=== PATIENT | female | born 1965 | race Caucasian/White ===

== ENCOUNTER 2019-06-03 16:00 | Outpatient (RCR) | payer OTHER, SELFPAY | END 2019-06-08 23:59 | LOC: NS 16:00 | PROVIDERS: PCP Internal Medicine; Visit Provider Internal Medicine | DX: Z71.3 Dietary counseling and surveillance (principal); E66.9 Obesity, unspecified; I10 Essential (primary) hypertension; R73.9 Hyperglycemia, unspecified | CPT/HCPCS: 97802; 97803 ==

== ENCOUNTER 2019-06-17 15:06 | Outpatient (RCR) | payer OTHER, SELFPAY | END 2019-07-09 23:59 | LOC: NS 15:06 | PROVIDERS: PCP Internal Medicine; Visit Provider Internal Medicine | DX: Z71.3 Dietary counseling and surveillance (principal); E66.9 Obesity, unspecified; I10 Essential (primary) hypertension; R73.9 Hyperglycemia, unspecified | CPT/HCPCS: 97803 ==

== ENCOUNTER 2019-07-15 14:51 | Outpatient (RCR) | payer OTHER, SELFPAY | END 2019-08-08 23:59 | LOC: NS 14:51 | PROVIDERS: PCP Internal Medicine; Visit Provider Internal Medicine | DX: Z71.3 Dietary counseling and surveillance (principal); E66.9 Obesity, unspecified; I10 Essential (primary) hypertension; R73.9 Hyperglycemia, unspecified | CPT/HCPCS: 97803 ==

== ENCOUNTER 2019-08-27 16:36 | Outpatient (RCR) | payer OTHER, SELFPAY | END 2019-09-08 23:59 | LOC: NS 16:36 | PROVIDERS: PCP Internal Medicine; Visit Provider Internal Medicine | DX: Z71.3 Dietary counseling and surveillance (principal); E66.9 Obesity, unspecified; I10 Essential (primary) hypertension; R73.9 Hyperglycemia, unspecified | CPT/HCPCS: 97803 ==

== ENCOUNTER 2019-09-17 14:25 | Outpatient (RCR) | payer OTHER, SELFPAY | END 2019-09-17 23:59 | disposition home or self-care (01) | LOC: NS 14:25 | PROVIDERS: PCP Internal Medicine; Visit Provider Internal Medicine | DX: Z71.3 Dietary counseling and surveillance (principal); E66.9 Obesity, unspecified; I10 Essential (primary) hypertension; R73.9 Hyperglycemia, unspecified | CPT/HCPCS: 97803 ==

== ENCOUNTER 2022-10-31 17:30 | Outpatient (RCR) | payer SELFPAY | END 2022-11-07 23:59 | LOC: NS 17:30 | PROVIDERS: PCP Internal Medicine | DX: Z71.3 Dietary counseling and surveillance (principal); E11.9 Type 2 diabetes mellitus without complications ==

== ENCOUNTER 2022-12-22 16:00 | Observation (INO) | payer OTHER, SELFPAY ==
[2022-12-22 16:01] VITALS: BP 166/84; PULSE 79; RESP 20; TEMP 36.5; O2SAT 94; BMI 45.8
[2022-12-22] MEDS: Ondansetron 4 MG/2 ML Vial IV ×3 (16:13→23:27)
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
[2022-12-22] MEDS: fentaNYL 100 MCG/2 ML Ampul 50 MCG IV (16:15)
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
[2022-12-22 16:44] LABS: Absolute Lymphocyte Count 2.53 X10^3/uL (0.83-4.51); Absolute Neutrophil Count 6.8 X10^3/uL (2.0-7.7); Basophil# 0.06 X10^3/uL; Basophil% 0.6 % (0-1); Hemoglobin 13.1 g/dL (12.0-15.0); Lymphocyte # 2.53 X10^3/ul (0.83-4.51); Lymphocyte % 24.4 % (19-41); Mean Corp Hgb Conc 31.2 g/dL (32-36); Mean Corpuscular Hgb 27.7 pg (27.0-32.0); Mean Corpuscular Volume 88.8 fL (81-99); Mean Platelet Vol. 10.9 fl (6.2-12.0); Monocyte# 0.76 X10^3/uL; Monocyte% 7.3 % (0-10); NRBC Flagged by Analyzer 0 % (0-5); Neutrophil # 6.83 X10^3/uL (2.7-7.7); Neutrophil % 65.7 % (47-70); Platelet Count 317 K/mm3 (150-450); RBC Distribution Width CV 13.9 % (11.6-14.6); RBC Distribution Width SD 45.1 fl (35.1-43.9); Red Blood Count 4.73 M/mm3 (4.2-5.4); White Blood Count 10.4 K/mm3 (4.4-11.0)
[2022-12-22 16:55] LABS: International Normalized Ratio 2.2; Prothrombin Time (Protime)PT. 24.5 SECONDS (11.7-14.9)
[2022-12-22 17:04] LABS: Anion Gap 6 (5-15); BUN 17 mg/dL (7-18); BUN/Creat Ratio 25.1 RATIO (10-20); Calcium,Total 9.6 mg/dL (8.5-10.1); Chloride 105 mmol/L (98-107); Creatinine, Serum 0.68 mg/dL (0.55-1.02); EST Glomerular Filtration Rate 95 mL/min (>60); Est Glom Filt Rate - Afr Amer 115 mL/min (>60); Estimated Creatinine Clearance 78.82 ml/min; Glucose 115 mg/dL (74-106); Potassium 4.2 mmol/L (3.5-5.1); Sodium Level 137 mmol/L (136-145)
[2022-12-22 18:00] VITALS: BP 162/78; PULSE 90; RESP 26; O2SAT 90
[2022-12-22] MEDS: Morphine 4 MG/ML Syringe IV ×3 (18:05→23:28)
[2022-12-22 20:58] VITALS: BP 174/98; PULSE 104; RESP 28; O2SAT 95
[2022-12-22 21:18] VITALS: BP 114/69; PULSE 104; RESP 29; O2SAT 94
--- NOTE | 2022-12-22 21:18 | ED.RN ---
Pt given morphine 4mg IV, pulse ox resting at 92%. Placed on 2L NC to prevent hypoxia from morphine.
[2022-12-22 21:53] VITALS: BP 140/72; PULSE 105; RESP 28; TEMP 36.8; O2SAT 93
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
--- NOTE | 2022-12-22 22:17 | ED.RN ---
Pt able to slowly stand but unable to ambulate.
[2022-12-22 23:08] VITALS: BMI 42.7
[2022-12-22 23:21] VITALS: BP 167/98; PULSE 88; RESP 18; TEMP 36.6; O2SAT 93
[2022-12-23] VITALS (7 sets, daily range): BP systolic 80–147; BP diastolic 61–92; PULSE 78–100; RESP 15–18; TEMP 36.2–36.9; O2SAT 92–99
[2022-12-23] MEDS: oxyCODONE 5 MG Tablet 10 MG PO ×3 (04:02→21:12)
[2022-12-23] MEDS: Acetaminophen 325 MG Tablet 650 MG PO (04:02)
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
[2022-12-23 07:29] LABS: Absolute Lymphocyte Count 1.95 X10^3/uL (0.83-4.51); Absolute Neutrophil Count 7.1 X10^3/uL (2.0-7.7); Basophil# 0.05 X10^3/uL; Basophil% 0.5 % (0-1); Eosinophil# 0.11 X10^3/uL; Eosinophils% 1.1 % (0-5); Hematocrit 39.8 % (37-47); Hemoglobin 12.2 g/dL (12.0-15.0); Lymphocyte # 1.95 X10^3/ul (0.83-4.51); Lymphocyte % 19.3 % (19-41); Mean Corp Hgb Conc 30.7 g/dL (32-36); Mean Corpuscular Hgb 27.4 pg (27.0-32.0); Mean Corpuscular Volume 89.4 fL (81-99); Mean Platelet Vol. 11.1 fl (6.2-12.0); Monocyte# 0.88 X10^3/uL; Monocyte% 8.7 % (0-10); NRBC Flagged by Analyzer 0 % (0-5); Neutrophil # 7.08 X10^3/uL (2.7-7.7); Neutrophil % 70.1 % (47-70); Platelet Count 304 K/mm3 (150-450); RBC Distribution Width CV 13.9 % (11.6-14.6); RBC Distribution Width SD 45.4 fl (35.1-43.9); Red Blood Count 4.45 M/mm3 (4.2-5.4); White Blood Count 10.1 K/mm3 (4.4-11.0)
[2022-12-23 08:06] LABS: Anion Gap 1 (5-15); BUN 10 mg/dL (7-18); BUN/Creat Ratio 18.3 RATIO (10-20); Chloride 105 mmol/L (98-107); Creatinine, Serum 0.54 mg/dL (0.55-1.02); EST Glomerular Filtration Rate 122 mL/min (>60); Est Glom Filt Rate - Afr Amer 148 mL/min (>60); Estimated Creatinine Clearance 99.26 ml/min; Glucose 110 mg/dL (74-106); Potassium 3.9 mmol/L (3.5-5.1); Sodium Level 136 mmol/L (136-145)
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
[2022-12-23] MEDS: Paroxetine 20 MG Tablet PO (10:45)
[2022-12-23] MEDS: Lisinopril 20 MG Tablet PO (10:45)
[2022-12-23] MEDS: Lidocaine 5% Patch 1 PATCH TOPICAL (10:45)
[2022-12-23] MEDS: Pantoprazole Sodium 40 MG Tablet PO (10:45)
[2022-12-23] MEDS: tiZANidine HCl 2 MG Tablet 4 MG PO ×3 (10:45→21:14)
[2022-12-23] MEDS: Acetaminophen 500 MG Tablet 1000 MG PO ×3 (10:54→21:13)
[2022-12-23] MEDS: Ibuprofen 400 MG Tablet 800 MG PO ×2 (14:07→21:14)
[2022-12-23] MEDS: Ondansetron 4 MG/2 ML Vial IV ×2 (14:12→21:45)
[2022-12-23] MEDS: 0.9% Saline Lock 10 ML Syringe IV ×2 (14:12→21:45)
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
[2022-12-23] MEDS: Senna/Docusate Sodium 1 Tablet 2 TABLET PO (17:31)
[2022-12-23] MEDS: MELATONIN 3 MG TABLET PO (21:12)
[2022-12-24] MEDS: Ibuprofen 400 MG Tablet 800 MG PO (06:59)
[2022-12-24] MEDS: Acetaminophen 500 MG Tablet 1000 MG PO (07:01)
[2022-12-24] MEDS: tiZANidine HCl 2 MG Tablet 4 MG PO (07:04)
[2022-12-24 07:05] LABS: International Normalized Ratio 2.6
[2022-12-24] MEDS: Senna/Docusate Sodium 1 Tablet 2 TABLET PO (07:12)
[2022-12-24 07:16] VITALS: BP 129/46; PULSE 76; RESP 16; TEMP 36.4; O2SAT 99
[2022-12-24 07:23] LABS: Anion Gap 6 (5-15); BUN 21 mg/dL (7-18); BUN/Creat Ratio 16.2 RATIO (10-20); Calcium,Total 8.8 mg/dL (8.5-10.1); Chloride 105 mmol/L (98-107); EST Glomerular Filtration Rate 45 mL/min (>60); Est Glom Filt Rate - Afr Amer 54 mL/min (>60); Estimated Creatinine Clearance 41.23 ml/min; Glucose 98 mg/dL (74-106); Potassium 4.1 mmol/L (3.5-5.1); Sodium Level 137 mmol/L (136-145)
[2022-12-24 09:10] VITALS: BP 89/59; PULSE 77; RESP 16; TEMP 36.1; O2SAT 94
[2022-12-24] MEDS: Lidocaine 5% Patch 1 PATCH TOPICAL (09:14)
[2022-12-24] MEDS: Paroxetine 20 MG Tablet PO (09:15)
[2022-12-24] MEDS: Pantoprazole Sodium 40 MG Tablet PO (09:15)
[2022-12-24] MEDS: 0.9% Normal Saline (500mL Bag) 500 ML 999 ML IV (09:19)
[2022-12-24 10:50] LABS: Anion Gap 5 (5-15); BUN 23 mg/dL (7-18); BUN/Creat Ratio 19.5 RATIO (10-20); Calcium,Total 8.4 mg/dL (8.5-10.1); Chloride 106 mmol/L (98-107); Creatinine, Serum 1.18 mg/dL (0.55-1.02); EST Glomerular Filtration Rate 50 mL/min (>60); Est Glom Filt Rate - Afr Amer 61 mL/min (>60); Estimated Creatinine Clearance 45.42 ml/min; Glucose 114 mg/dL (74-106); Potassium 4.3 mmol/L (3.5-5.1); Sodium Level 135 mmol/L (136-145)
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
[2022-12-24 12:00] VITALS: BP 99/50; PULSE 74
== END 2022-12-24 13:38 | disposition home or self-care (01) ==
LOC: ED 21:51 → MS3 22:12
PROVIDERS: Admitting Provider Hospitalist; Emergency Provider Emergency Medicine; PCP Internal Medicine; Visit Provider Internal Medicine
DX: S32.010A Wedge compression fracture of first lumbar vertebra, initial encounter for closed fracture (principal); Z68.41 Body mass index [BMI] 40.0-44.9, adult; E66.01 Morbid (severe) obesity due to excess calories; D68.59 Other primary thrombophilia; M51.16 Intervertebral disc disorders with radiculopathy, lumbar region; I10 Essential (primary) hypertension; K21.9 Gastro-esophageal reflux disease without esophagitis; Y92.410 Unspecified street and highway as the place of occurrence of the external cause; V89.2XXA Person injured in unspecified motor-vehicle accident, traffic, initial encounter; F32.A Depression, unspecified; M25.552 Pain in left hip; R26.2 Difficulty in walking, not elsewhere classified; M25.551 Pain in right hip; Z86.711 Personal history of pulmonary embolism; Z79.01 Long term (current) use of anticoagulants; F41.9 Anxiety disorder, unspecified; Z79.899 Other long term (current) drug therapy
CPT/HCPCS: 36415; 70450; 72125; 72131; 72148; 72192; 80048; 85025; 85610; 85730; 94668; 96361; 96374; 96375; 96376; 97110; 97162; 97166; 97530; 99221; 99252; 99285; J7040; A4216; G0378; G0463; J2405

== ENCOUNTER → 2023-07-04 | Outpatient (CLI) | payer OTHER, SELFPAY ==
--- NOTE | 2023-07-04 | BON_PTH ---
PATIENT: PARIS STEARNS LOC: [facility] U#:[id number] AGE/SX: 57/F ROOM: RE07/04/[address]: Dr. Arnav Calvert DO : 1965 BED: DIS: 07/04/2023 SPEC #: [id number] RECD: 07/04/23 15:14 STATUS: HARRIET REAlbino #: [id number] ARLETH: 07/04/23 00:[address]: Arnav Calvert DEPT: SURGICAL PATHOLOGY RECD BY: Germán Sparks ENTERED: 07/05/23 10:41 SP TYPE: Bone OTHR DR: Dr. Solange Pope MD Tissues: Vertebra, NOS Procedures: Decalcification bone/plaque Surgery Specimen Level IV HEADER OPERATION: Lumbar 1 kyphoplasty PRE-OP DIAGNOSIS: Compression fracture of lumbar 1 TISSUE SUBMITTED: L1 vertebral body bone MICROSCOPIC DIAGNOSIS L1 vertebral body bone, core biopsy: Changes of fracture. Increased polytypic (benign) plasma cell population. Polytypic para-trabecular lymphoid aggregates. See comment. / 07/06/2023 / 07/10/23 COMMENT Immunohistochemistry ([id number]) supports the above diagnosis and shows a mildly increased (5-6%) polytypic plasma cell population scattered throughout the core biopsy. No clustering of plasma cells is seen. This may be related to the compression fracture at this site. Several benign polytypic lymphoid aggregates are also noted. This case was reviewed and diagnosis discussed with Dr. Calvert on 07/10/23. Case has been reviewed in consultation with Dr. Richard who concurs with the above diagnosis. IDC:SJ MICROSCOPIC DESCRIPTION Slides are reviewed. GROSS DESCRIPTION Received in fixative is one container labeled with the patient's name and designated vertebral body L1 bone biopsy. The specimen consists of cylindrical fragment of the de león bone measuring 1.5cm in length and 0.2cm in diameter. The entire specimen is submitted in one cassette after decalcification. / 07/05/23 TC: 0 CPT: 00329,40484
--- NOTE | 2023-07-04 | BON_PTH ---
PATIENT: PARIS STEARNS LOC: [facility] U#:[id number] AGE/SX: 57/F ROOM: RE07/04/[address]: Dr. Arnav Calvert DO : 1965 BED: DIS: 07/04/2023 SPEC #: [id number] RECD: 07/04/23 15:14 STATUS: HARRIET REAlbino #: [id number] ARLETH: 07/04/23 00:[address]: Arnav Calvert DEPT: SURGICAL PATHOLOGY RECD BY: Germán Sparks ENTERED: 07/05/23 10:41 SP TYPE: Bone OTHR DR: Dr. Solange Pope MD Tissues: Vertebra, NOS Procedures: Decalcification bone/plaque Surgery Specimen Level IV HEADER OPERATION: Lumbar 1 kyphoplasty PRE-OP DIAGNOSIS: Compression fracture of lumbar 1 TISSUE SUBMITTED: L1 vertebral body bone MICROSCOPIC DIAGNOSIS L1 vertebral body bone, core biopsy: Changes of fracture. Increased polytypic plasma cells Polytypic para-trabecular lymphoid aggregates. See comment. / 07/06/2023 COMMENT Immunohistochemistry ([id number]) supports the above diagnosis and shows a mildly increased (5-6%) polytypic plasma cell population scattered throughout the core biopsy. No clustering of plasma cells is seen. This may be related to the compression fracture at this site. Several benign polytypic lymphoid aggregates are also noted. Case has been reviewed in consultation with Dr. Richard who concurs with the above diagnosis. IDC:SJ MICROSCOPIC DESCRIPTION Slides are reviewed. GROSS DESCRIPTION Received in fixative is one container labeled with the patient's name and designated vertebral body L1 bone biopsy. The specimen consists of cylindrical fragment of the de le[place] bone measuring 1.5cm in length and 0.2cm in diameter. The entire specimen is submitted in one cassette after decalcification. / 07/05/23 TC: 0 CPT: 56809,29300
--- NOTE | 2023-07-05 | IMM_PTH ---
PATIENT: PARIS STEARNS LOC: LAB U#:[id number] AGE/SX: 57/F ROOM: RE07/04/[address]: Dr. Arnav Calvert DO : 1965 BED: DIS: 07/04/2023 SPEC #: [id number] RECD: 07/06/23 12:46 STATUS: SOUMadhavi REQ #: [id number] ARLETH: 07/05/23 00:[address]: Arnav Calvert DEPT: IMMUNOHISTOCHEMISTRY RECD BY: Ajit Howell ENTERED: 07/06/23 12:48 SP TYPE: IMMUNO OTHR DR: Dr. Solange Pope MD Tissues: Vertebra, NOS Procedures: BCL-2 (add) BCL-6 (add) CD10 (add) CD138 (add) CD15 (add) CD20 (add) CD23 (add) CD3 (add) CD30 (add) CD43 (add) CD45 (add) CD5 (add) CD79A (add) CYCLIN (add) KAPPA (add) KI-67 (add) LAMBDA (add) MPO (add) P53 (add) MUM1 (add) C-MYC (add) Pankeratin (initial) PHYSICIAN & INSTITUTION [place] [address] SPECIMEN INFORMATION: Tissue Source: L1 vertebral body bone Clinical Info: Compression fracture of lumbar 1 Specimen Number: [id number] CPT code: 51742i74 METHODOLOGY: Deparaffinized sections of prefer/formalin-fixed tissue or PAP/DQ stained slides are incubated with monoclonal/polyclonal antibodies/oligonucleotide probes. Localization is made via biotin free immunoperoxidase method. Appropriate controls are performed and reacted as expected. Results on target cell population are indicated in the following table: RESULTS: ANTIBODY / CLONE RESULT AE1-3 (AE1/AE3/PCK26) negative CD3 (PS1) positive CD5 (SP10) positive CD20 (L26) positive, focal CD43 (L60) positive CD45 (RP2/18) positive CD79a (11E3) positive, plasma cells CD138 (B-A38) positive [place] (polyclonal) negative Lambda (polyclonal) negative CD10 (56C6) positive, stromal tissue CD15 (MMA) positive, non specific CD23 (1B12) negative CD30 (Michael-H2) negative BCL-2 (bcl-2/100/D5) negative BCL-6 (QN886M/A8) negative [place] D1/BCL-1 (SP4) negative MUM1 (MRQ-43) negative C-MYC (Y69) negative MPO (polyclonal) positive P53 (DO-7) positive Ki-67 (30-9) positive, rare These tests were developed and their performance characteristics determined by [facility]. They may not have been cleared or approved by the U.S. Food and Drug Administration. The FDA has determined that such clearance or approval is not necessary. The above immunohistochemical/dualISH markers are ordered and reviewed by the Pathologist. INTERPRETATION: L1 vertebral body bone; Polytypic plasma cells are mildly increased. See comment. AM/mr 07/07/23 Comment: Clinical correlation is suggested. Case has been reviewed in consultation with Dr. Richard who concurs with the above diagnosis. IDC:SJ
== END | disposition home or self-care (01) ==
LOC: LAB 16:51
PROVIDERS: PCP Internal Medicine; Referring Provider Orthopaedic Surgery; Visit Provider Orthopaedic Surgery
DX: S32.018A Other fracture of first lumbar vertebra, initial encounter for closed fracture (principal)
CPT/HCPCS: 88305; 88311; 88341; 88342